=== PATIENT | female | born 1925 | race Caucasian/White ===

== ENCOUNTER → 2016-07-14 | Outpatient (CLI) | payer MEDICARE | LOC: RAD 10:02 | PROVIDERS: ATTEND Specialist | DX: R51 Headache (principal); R90.82 White matter disease, unspecified; C50.919 Malignant neoplasm of unspecified site of unspecified female breast | CPT/HCPCS: 70470 ==

== ENCOUNTER → 2016-10-23 | Outpatient (CLI) | payer MEDICARE | LOC: RAD 09:05 | PROVIDERS: ATTEND Specialist | DX: C50.919 Malignant neoplasm of unspecified site of unspecified female breast (principal); R91.1 Solitary pulmonary nodule; C79.51 Secondary malignant neoplasm of bone | CPT/HCPCS: 71260 ==

== ENCOUNTER → 2016-11-24 | Outpatient (CLI) | payer MEDICARE | LOC: RAD 08:15 | PROVIDERS: ATTEND Specialist | DX: K76.89 Other specified diseases of liver (principal) | CPT/HCPCS: 76700; 93976 ==

== ENCOUNTER → 2017-03-09 | Outpatient (CLI) | payer MEDICARE ==
--- NOTE | 2017-03-12 13:10 | RADIOLOGY REPORT (SQ) ---
EXAM DESCRIPTION: PET CT SKULL/THIGH COMPLETED DATE/TIME: 03/09/2017 5:36 pm REASON FOR STUDY: BREAST CA C50.919 MALIGNANT NEOPLASM OF UNSP SITE OF UNSPECIFIED FEMAL COMPARISON: CT chest abdomen pelvis 01/07/2016 PET-CT 06/02/2016 CT chest 04/29/2015 08/10/2015, 10/13/2016 RADIONUCLIDE AND DOSE: 11.4 mCi F18 FDG The route of agent administration: Intravenous FASTING BLOOD SUGAR: 87 mg/dl CONTRAST TYPE AND DOSE: No CT contrast given. TECHNIQUE: Blood glucose level was verified. Above dose of FDG was injected intravenously. 2-D seg mented attenuation correction images were obtained from the base of the skull to the midthighs. Nonc ontrast CT images were obtained for attenuation correction and fusion with emission images. CT image s were performed without oral or intravenous contrast and are not sensitive for parenchymal lesions. A series of overlapping emission PET images were obtained. Images reviewed and manipulated at [facility] work station by the radiologist. Images stored on PACS. LIMITATIONS: None. FINDINGS: HEAD AND NECK: No areas of abnormal metabolic activity in the soft tissues of the head and neck. CHEST: No areas of worrisome abnormal metabolic activity in the chest. Patient has a chronic rind of pleural thickening in the left posterior and lateral costophrenic sulcu s with SUV up to 2.4. Anatomically this is unchanged over the series of exams dating back to 6. Non metabolic small pleural-based densities are present at the periphery of the lower lobes left grea ter than right, unchanged compared to 08/10/2015. Lungs exhibit hyperinflation and hyperlucency from obstructive disease. No pleural effusion or pneum othorax. ABDOMEN AND PELVIS: No areas of abnormal metabolic activity in the abdomen or pelvis. Expected physi ologic activity is present in the genitourinary system and bowel. PROXIMAL LOWER EXTREMITIES: No areas of abnormal metabolic activity in the soft tissues of the lower extremities. BONES: No abnormal metabolic activity in the visualized skeleton. ADDITIONAL CT FINDINGS: No old bilateral mastectomies. Diffuse degenerative changes throughout the s pine. Stable sclerotic lesions and mid thoracic spine, lower thoracic spine, lumbar spine, right inn ominate bone and both proximal femurs. Colonic diverticulosis without CT signs of diverticulitis. B ilateral renal cortical cysts. OTHER: Blood pool activity 1.8 SUV, liver activity 2.5 SUV IMPRESSION: Stable exam compared to August 2015. No PET-CT findings of significant metabolically active metastatic disease given history of breast cancer restaging TECHNICAL DOCUMENTATION: JOB ID: [id number] [employer]- All Rights Reserved
== END ==
LOC: RAD 14:20
PROVIDERS: ATTEND Physician Assistant
DX: C50.919 Malignant neoplasm of unspecified site of unspecified female breast (principal)
CPT/HCPCS: 78815; A9552